=== PATIENT | female | born 1945 | race Caucasian/White ===

== ENCOUNTER → 2020-12-17 | Outpatient (CLI) | payer OTHER ==
[~2020-12-17] MED LIST: CYCLOBENZAPRINE10 MG PO; FOLIC ACID1 MG PO; HYDROXYCHLOROQ200 M1 PO; LASIX 40 MG TAB40 M1 PO; LORTAB 5 MG/5001 TA1 PO; METHOTREXATE 22.5 MG PO; PATADAY2.5 ML OP; POTASSIUM CHLO20 ME1 PO; PREDNISONE 10 M10 M1 PO; SYMBICORT80 MCG/4.1 INH; TIROSINT75 MCG PO; XOPENEX HF1 UDINHALE IH
== END ==
LOC: MRI 12-15 13:01
PROVIDERS: ATTEND Family Medicine
DX: M43.17 Spondylolisthesis, lumbosacral region (principal); S22.088A Other fracture of T11-T12 vertebra, initial encounter for closed fracture; X58.XXXA Exposure to other specified factors, initial encounter; Y93.89 Activity, other specified; Y92.89 Other specified places as the place of occurrence of the external cause; Y99.8 Other external cause status

== ENCOUNTER → 2021-04-06 | Outpatient (CLI) | payer OTHER | LOC: SJCVC 13:02 | PROVIDERS: ATTEND Nuclear Medicine Nuclear Cardiology | DX: M80.08XA Age-related osteoporosis with current pathological fracture, vertebra(e), initial encounter for fracture (principal); M06.9 Rheumatoid arthritis, unspecified; M25.50 Pain in unspecified joint; I50.9 Heart failure, unspecified; E78.5 Hyperlipidemia, unspecified; E03.9 Hypothyroidism, unspecified; M54.9 Dorsalgia, unspecified; Z88.5 Allergy status to narcotic agent; Z88.8 Allergy status to other drugs, medicaments and biological substances; Z79.899 Other long term (current) drug therapy ==